=== PATIENT | female | born 1940 | race Hispanic/Latino ===

== ENCOUNTER → 2018-11-22 | Outpatient (CLI) | payer MEDICARE ==
--- NOTE | 2018-11-22 14:46 | Diagnostic Imaging Report ---
EXAM: US RENAL RETROPERITONEAL COMP DATE: 11/22/2018 1:43 PM INDICATION: Incomplete bladder emptying COMPARISON: None FINDINGS: Grayscale and color flow Doppler ultrasound of the kidneys and urinary bladder was performed. Right kidney: 11.4 x 4.9 x 4.8 cm. Cortical echogenicity normal. Cortical thickness 1.9 cm. No hydronephrosis or contour deforming mass. Left kidney: 11.1 x 5.1 x 4.7 cm. Cortical thickness 2.2 cm. Cortical echogenicity normal. No hydronephrosis or contour deforming mass. Urinary bladder: Unremarkable appearance. There is intermittent visualization of bilateral ureteral jets. Prevoid volume 255 cc, postvoid volume was not assessed. IMPRESSION: 1. No hydronephrosis or contour deforming renal mass. 2. Urinary bladder has unremarkable appearance. Signed by: Dr. Azeem George M.D. on 11/22/2018 2:43 PM
== END ==
LOC: US 13:35
PROVIDERS: ATTEND Urology
DX: R39.14 Feeling of incomplete bladder emptying (principal)
CPT/HCPCS: 76770